=== PATIENT | male | born 1945 | race Caucasian/White ===

== ENCOUNTER → 2016-12-07 | Outpatient (REF) | payer OTHER ==
[2016-12-07 13:51] LABS: GAMMA GLUTAMYLTRANSPEPTIDASE 34 U/L (15-85)
[2016-12-07 13:54] LABS: CONTROL LINE HPYORI INT CTR LINE PRESENT
[2016-12-07 14:03] LABS: HEPATITIS B SURFACE ANTIBODY NEGATIVE (POSITIVE)
== END ==
LOC: M LAB REF 13:19
PROVIDERS: ATTEND Internal Medicine Medical Oncology
DX: D69.6 Thrombocytopenia, unspecified (principal)

== ENCOUNTER → 2016-12-22 | Outpatient (REF) | payer MEDICARE, OTHER | LOC: M LAB REF 09:09 | PROVIDERS: ATTEND Internal Medicine Medical Oncology | DX: D69.6 Thrombocytopenia, unspecified (principal) ==

== ENCOUNTER → 2022-12-18 | Outpatient (CLI) | payer MEDICARE, OTHER ==
[~2022-12-18] MED LIST: ATOR80TA59 PO; B121000T PO; DILT120C78 PO; ELIQ5TAB PO; ENOX40IN3 SC; FLOM0.4C39 PO; FURO40TA2 PO; GABA-282 PO; K-TA1TAB PO; LEVO2TA PO; LOSA50TA28 PO; OMEP1CAP73 PO
== END ==
LOC: M SLEEP 20:00
PROVIDERS: ATTEND Nurse Practitioner Family
DX: G47.33 Obstructive sleep apnea (adult) (pediatric) (principal)